=== PATIENT | male | born 1985 | race Caucasian/White ===

== ENCOUNTER 2016-11-16 13:00 | Emergency (ER) | payer BC ==
[2016-11-16 17:29] LABS: microscopic required? NO
[2016-11-16 17:48] LABS: UA SPECIFIC GRAVITY 1.025 (1.005-1.035); urine erythrocyte NEGATIVE (NEGATIVE)
[2016-11-16 18:10] VITALS: BP 130/92
== END 2016-11-16 18:12 | disposition home or self-care (01) ==
LOC: ED 13:00
PROVIDERS: Emergency Medicine
DX: I86.1 Scrotal varices (principal)

== ENCOUNTER 2018-03-19 11:09 | Emergency (ER) | payer BC ==
[~2018-03-19] VITALS: Ht 172.7 cm; Wt 108.4 kg
[2018-03-19 11:13] VITALS: Ht 172.7 cm; Wt 108.4 kg
[2018-03-19 12:06] LABS: BASOPHIL % 0.3 % (0-2); PLATELET COUNT 207 x10^3mcL (130-400); RED CELL DISTRIBUTION WIDTH 11.7 % (11.5-14.5)
[2018-03-19 12:12] LABS: CALCIUM 8.9 mg/dL (8.5-10.1); CARBON DIOXIDE 27.6 mmol/L (21-32); CHLORIDE SERUM 105 mmol/L (98-107); CREATININE SERUM 0.9 mg/dL (0.7-1.3); GFR1 > 60 mL/min; GLUCOSE SERUM 108 mg/dL (74-106); POTASSIUM SERUM 3.9 mmol/L (3.5-5.1); SODIUM SERUM 139 mmol/L (136-145)
[2018-03-19 13:02] VITALS: BP 148/89
== END 2018-03-19 13:02 | disposition home or self-care (01) ==
LOC: ED 11:09
PROVIDERS: Emergency Medicine
DX: T40.5X1A Poisoning by cocaine, accidental (unintentional), initial encounter (principal); R07.89 Other chest pain; Y92.89 Other specified places as the place of occurrence of the external cause
CPT/HCPCS: 36415; Q0092